=== PATIENT | female | born 1960 | race Caucasian/White ===

== ENCOUNTER 2020-07-14 19:36 | Emergency (ER) | payer OTHER ==
[~2020-07-14] VITALS: Ht 160 cm; Wt 81.6 kg
[2020-07-14 19:47] VITALS: BP 142/94
--- NOTE | 2020-07-14 19:47 | NUR ---
TO BED AMBULATORY
--- NOTE | 2020-07-14 19:55 | NUR ---
PATIENT PRESENTS TO ED WITH C/O OF NAUSEA AND VOMITING. PT STATES THAT SHE HAD A [employer] THIS MORNING AND 4 HOURS LATER SHE STARTED TO VOMIT. SHE ALSO STATES SHE FEELS DIZZY. SKIN IS PINK/WARM/DRY; AAOX4 WITH EVEN AND STEADY GAIT; HR EVEN AND REGULAR; PT DENIES ANY FEVER, CP, SOB, OR COUGH AT THIS TIME; PATIENT STATES PAIN OF 5/10 AT THIS TIME; VSS; PATIENT POSITIONED FOR COMFORT; HOB ELEVATED; BEDRAILS UP X2; BED DOWN. ER MD MADE AWARE OF PT STATUS. PMH: NONE ALLERGIES: NKA
--- NOTE | 2020-07-14 20:09 | NUR ---
DR. MCLAUGHLIN EXAMINING PATIENT.
[2020-07-14] MEDS ORDERED: IBUP-2213 PO (20:32)
[2020-07-14] MEDS ORDERED: ONDA8TAB87 PO (20:32)
[2020-07-14] MEDS: ONDANSETRON 4 MG ODT PO ONE (20:54)
[2020-07-14] MEDS: KETOROLAC 60 MG/2 ML VIAL IM ONE (20:54)
[2020-07-14 21:00] VITALS: BP 142/94
--- NOTE | 2020-07-14 21:00 | NUR ---
Patient discharged with v/s stable. Written and verbal after care instructions given and explained. Patient alert, oriented and verbalized understanding of instructions. Ambulatory with steady gait. All questions addressed prior to discharge. ID band removed. Patient advised to follow up with PMD. Rx of ZOFRAN AND IBUPROFEN given. Patient educated on indication of medication including possible reaction and side effects. Opportunity to ask questions provided and answered.
== END 2020-07-14 21:00 | disposition home or self-care (01) ==
LOC: MED 19:36
DX: R10.13 Epigastric pain (principal); R11.2 Nausea with vomiting, unspecified; R19.7 Diarrhea, unspecified; Z90.49 Acquired absence of other specified parts of digestive tract
CPT/HCPCS: 81002; 96372; 99283; J1885; Q0162